=== PATIENT | female | born 1945 | race Caucasian/White ===

== ENCOUNTER → 2016-09-30 | Outpatient (CLI) | payer OTHER ==
--- NOTE | 2016-09-30 18:58 | DI ---
CERVICAL SPINE SERIES, 09/30/2016 4:55 PM: Clinical History: Neck pain. Previous Exam: None at this facility. Upright AP and lateral and upright lateral flexion and extension views and a lateral upright swimmer' s view are submitted. The patient is status post anterior fusions from C4-5 through C6-7. The C2-3 an d C3-4 disc spaces are of normal height. The C7-T1 disc space is not visualized. Lucencies are presen t on the superior and inferior aspects of the bone graft cages at all levels suggesting these fusions may not be solid. There is anterior subluxation of C2 on C3 and C3 on C4 by approximately 1-2 mm but there is no instability with flexion and extension. Almost all of the change in the head position is secondary to elevation of the occiput relative to C1. Degenerative arthritic changes are present balbina aterally in the zygapophyseal joints at C2-3 and C3-4 with bony proliferative change that probably li mits excursion at these levels during flexion and extension. The C1-2 articulation shows no laxity bu t there is extensive degenerative change. Prevertebral soft tissue planes are normal. Readin. Status post anterior fusions at C4-5 through C6-7 and these fusions may not be solid. 2. Anterior subluxation of C2 on C3 and C3 on C4 by approximately 1-2 mm but there is no instability noted with flexion and extension maneuvers. There is extensive bony proliferative change with degene rative change involving the zygapophyseal joints bilaterally at C2-3 and C3-4 and this bony prolifera tion may limit excursion at these 2 levels. 3. Degenerative arthritic changes are present at C1-2 and with extension, the vast majority of motio n with change in the head position occurs between C1 and the occiput and C1-2.
== END ==
LOC: MOB RAD 16:32
PROVIDERS: ATTEND Neurological Surgery
DX: M54.2 Cervicalgia (principal); M47.812 Spondylosis without myelopathy or radiculopathy, cervical region; Z98.1 Arthrodesis status
CPT/HCPCS: 72050; 99204; G0463